=== PATIENT | female | born 1985 | race American Indian/Alaskan Native ===

== ENCOUNTER 2020-06-04 11:24 | Emergency (ER) | payer BC, MEDICAID ==
[2020-06-04 11:59] VITALS: BP 120/85
--- NOTE | 2020-06-04 12:38 | Event Note ---
ED Screening Note Date of service: 06/04/20 Time: 12:34 ED Screening Note: 8-week patient presents with complaints of nausea vomiting for the duration of her She is currently following with Dr. Julio Cesar Cedeno [employer] Shani states that she was unable to afford the nausea medication that was prescribed Diclegis, and she was told to try Unisom and B6-states cannot take because makes her drowsy She also does states some mild lower abdominal cramping and intermittent vaginal bleeding, however she did have an ultrasound to assess this on 05/31/2020 and no abnormalities were found She denies any new or worsening pain or bleeding This initial assessment/diagnostic orders/clinical plan/treatment(s) is/are subject to change based on patients health status, clinical progression and re- assessment by fellow clinical providers in the ED. Further treatment and workup at subsequent clinical providers discretion. Patient/guardian urged not to elope from the ED as their condition may be serious if not clinically assessed and managed. Initial orders include: labs
[2020-06-04 13:56] LABS: Basophils % (Auto) 0.7 % (0.0-1.8); Eosinophils # (Auto) 0.1 K/mm3 (0.0-0.4); Eosinophils % (Auto) 1.5 % (0.0-4.3); Hematocrit 39.6 % (30.3-42.9); Hemoglobin 13.3 gm/dl (10.1-14.3); Lymphocytes # (Auto) 1.5 K/mm3 (1.2-5.4); Mean Corpuscular HGB Conc 34 % (30-34); Mean Corpuscular Volume 83 fl (79-97); Monocytes # (Auto) 0.5 K/mm3 (0.0-0.8); Monocytes % (Auto) 10.9 % (0.0-7.3); Platelet Count 373 K/mm3 (140-440); Red Blood Count 4.79 M/mm3 (3.65-5.03); Red Cell Distribution Width 12.8 % (13.2-15.2)
[2020-06-04 14:32] LABS: Alanine Aminotransferase 18 units/L (7-56); Albumin 4.4 g/dL (3.9-5); BUN/Creatinine Ratio 12; Blood Urea Nitrogen 6 mg/dL (7-17); Calcium 9.6 mg/dL (8.4-10.2); Hemolysis Index 19
[2020-06-04 15:47] LABS: Bilirubin,Urine NEG (Negative); Blood,Urine NEG (Negative); Color,Urine Amber (Yellow); Mucus,Urine 1+ /HPF
[2020-06-04] MEDS ORDERED: SUMAtriptan SUCCINATE 25 MG TAB PO ONE (17:52)
[2020-06-04] MEDS ORDERED: METOCLOPRAMIDE 10 MG TAB PO ONE (17:52)
[2020-06-04] MEDS ORDERED: ACETAMINOPHEN 325 MG TAB PO ONE (17:54)
[2020-06-04] MEDS ORDERED: SODIUM CHLORIDE 0.9% 1000 ML 1,000 ML IV ONE (17:54)
[2020-06-04] MEDS ORDERED: METOCLOPRAMIDE 10 MG/2 ML INJ IV ONE (17:54)
--- NOTE | 2020-06-04 18:32 | Emergency Department Report ---
ED General Adult HPI - General Chief complaint: Weakness Stated complaint: 8WKS PREG, DEHYDARTION Time Seen by Provider: 06/04/20 12:32 Source: patient Mode of arrival: Ambulatory Limitations: No Limitations - History of Present Illness Initial comments: Patient is a 34-year-old female presents emergency room with complaints of nausea and vomiting that has been ongoing for the last 2 months but worsened today. She states that she was unable to tolerate p.o. intake today. She states that she is also had constipation over the last couple days but has not taken anything for it. Patient states that she is currently 8 weeks . She states that she goes to [facility] and was seen there on Saturday (05/31/2020) and states she had a normal ultrasound at that time. Patient states she was given a prescription for diclegis but her insurance does not cover it and she was unable to get it due to monetary reasons. Patient states that she had vom iting throughout her last and states that Reglan did work for her. She states that she is not able to take the Unisom and B6 because she has to work during the day and it makes her sleepy. She denies any fever, dysuria, abdominal pain, vaginal bleeding. She denies any past medical history. She denies allergies medications. She states her last menstrual cycle was May 05. /P:2/A:0 Severity scale (0 -10): 6 - Related Data Previous Rx's Medication Instructions Recorded Last Taken Type Metoclopramide [Reglan] 10 mg PO TID #20 tab 06/04/20 Unknown Rx cephALEXin [Keflex] 500 mg PO BID 7 Days #14 cap 06/04/20 Unknown Rx Allergies Allergy/AdvReac Type Severity Reaction Status Date / Time No Known Allergies Allergy Unverified 06/04/20 12:30 ED Review of Systems ROS: Stated complaint: 8WKS PREG, DEHYDARTION Other details as noted in HPI Comment: All other systems reviewed and negative ED Past Medical Hx - Past Medical History Previous Medical History?: Yes Additional medical history: Vaginal delivery x 2 - Surgical History Past Surgical History?: Yes Additional Surgical History: T&A - Social History Smoking Status: Never Smoker Substance Use Type: None - Medications Home Medications: Home Medications Medication Instructions Recorded Confirmed Last Taken Type Metoclopramide [Reglan] 10 mg PO TID #20 tab 06/04/20 Unknown Rx cephALEXin [Keflex] 500 mg PO BID 7 Days #14 cap 06/04/20 Unknown Rx ED Physical Exam - General Limitations: No Limitations General appearance: alert, in no apparent distress - Head Head exam: Present: atraumatic, normocephalic - Eye Eye exam: Present: normal appearance - ENT ENT exam: Present: mucous membranes dry (mildly) - Respiratory Respiratory exam: Present: normal lung sounds bilaterally. Absent: respiratory distress, wheezes, rales, rhonchi, stridor, chest wall tenderness, accessory muscle use, decreased breath sounds, prolonged expiratory - Cardiovascular Cardiovascular Exam: Present: regular rate, normal rhythm, normal heart sounds. Absent: systolic murmur, diastolic murmur, rubs, gallop - GI/Abdominal GI/Abdominal exam: Present: soft, normal bowel sounds. Absent: distended, tenderness, guarding, rebound, rigid - Neurological Exam Neurological exam: Present: alert, oriented X3 - Psychiatric Psychiatric exam: Present: normal affect, normal mood - Skin Skin exam: Present: warm, dry, intact ED Course Vital Signs 06/04/20 06/04/20 11:57 12:36 Temperature 98.7 F 98.7 F Pulse Rate 69 69 Respiratory 18 18 Rate Blood Pressure 120/85 [Right] O2 Sat by Pulse 100 100 Oximetry ED Medical Decision Making - Lab Data Result diagrams: 06/04/20 13:40 06/04/20 13:40 Lab Results 06/04/20 06/04/20 06/04/20 Range/Units 13:40 13:40 16:03 WBC 4.5 (4.5-11.0) K/mm3 RBC 4.79 (3.65-5.03) M/mm3 Hgb 13.3 (10.1-14.3) gm/dl Hct 39.6 (30.3-42.9) % MCV 83 (79-97) fl MCH 28 (28-32) pg MCHC 34 (30-34) % RDW 12.8 L (13.2-15.2) % Plt Count 373 (140-440) K/mm3 Lymph % (Auto) 33.0 (13.4-35.0) % [place] % (Auto) 10.9 H (0.0-7.3) % Eos % (Auto) 1.5 (0.0-4.3) % Baso % (Auto) 0.7 (0.0-1.8) % Lymph # 1.5 (1.2-5.4) K/mm3 [place] # 0.5 (0.0-0.8) K/mm3 Eos # 0.1 (0.0-0.4) K/mm3 Baso # 0.0 (0.0-0.1) K/mm3 Seg Neutrophils % 53.9 (40.0-70.0) % Seg Neutrophils # 2.4 (1.8-7.7) K/mm3 Sodium 137 (137-145) mmol/L Potassium 3.8 (3.6-5.0) mmol/L Chloride 99.7 (98-107) mmol/L Carbon Dioxide 23 (22-30) mmol/L Anion Gap 18 mmol/L BUN 6 L (7-17) mg/dL Creatinine 0.5 L (0.7-1.2) mg/dL Estimated GFR > 60 ml/min BUN/Creatinine Ratio 12 % Glucose 90 (65-100) mg/dL Calcium 9.6 (8.4-10.2) mg/dL Total Bilirubin 0.60 (0.1-1.2) mg/dL AST 22 (5-40) units/L ALT 18 (7-56) units/L Alkaline Phosphatase 50 (35-129) units/L Total Protein 6.9 (6.3-8.2) g/dL Albumin 4.4 (3.9-5) g/dL Albumin/Globulin Ratio 1.8 % HCG, Quant 80482 H (0-4) mIU/mL Urine Color (Yellow) Urine Turbidity (Clear) Urine pH (5.0-7.0) Ur Specific [place] (1.003-1.030) Urine Protein (Negative) mg/dL Urine Glucose (UA) (Negative) mg/dL Urine Ketones (Negative) mg/dL Urine Blood (Negative) Urine Nitrite (Negative) Urine Bilirubin (Negative) Urine Urobilinogen (<2.0) mg/dL Ur Leukocyte Esterase (Negative) Urine WBC (Auto) (0.0-6.0) /HPF Urine RBC (Auto) (0.0-6.0) /HPF U Epithel Cells (Auto) (0-13.0) /HPF Urine Mucus /HPF 07/18/20 Range/Units Unknown WBC (4.5-11.0) K/mm3 RBC (3.65-5.03) M/mm3 Hgb (10.1-14.3) gm/dl Hct (30.3-42.9) % MCV (79-97) fl MCH (28-32) pg MCHC (30-34) % RDW (13.2-15.2) % Plt Count (140-440) K/mm3 Lymph % (Auto) (13.4-35.0) % [place] % (Auto) (0.0-7.3) % Eos % (Auto) (0.0-4.3) % Baso % (Auto) (0.0-1.8) % Lymph # (1.2-5.4) K/mm3 [place] # (0.0-0.8) K/mm3 Eos # (0.0-0.4) K/mm3 Baso # (0.0-0.1) K/mm3 Seg Neutrophils % (40.0-70.0) % Seg Neutrophils # (1.8-7.7) K/mm3 Sodium (137-145) mmol/L Potassium (3.6-5.0) mmol/L Chloride (98-107) mmol/L Carbon Dioxide (22-30) mmol/L Anion Gap mmol/L BUN (7-17) mg/dL Creatinine (0.7-1.2) mg/dL Estimated GFR ml/min BUN/Creatinine Ratio % Glucose (65-100) mg/dL Calcium (8.4-10.2) mg/dL Total Bilirubin (0.1-1.2) mg/dL AST (5-40) units/L ALT (7-56) units/L Alkaline Phosphatase (35-129) units/L Total Protein (6.3-8.2) g/dL Albumin (3.9-5) g/dL Albumin/Globulin Ratio % HCG, Quant (0-4) mIU/mL Urine Color Charline (Yellow) Urine Turbidity Cloudy (Clear) Urine pH 8.0 H (5.0-7.0) Ur Specific [place] 1.023 (1.003-1.030) Urine Protein 30 mg/dl (Negative) mg/dL Urine Glucose (UA) Neg (Negative) mg/dL Urine Ketones 80 (Negative) mg/dL Urine Blood Neg (Negative) Urine Nitrite Neg (Negative) Urine Bilirubin Neg (Negative) Urine Urobilinogen 4.0 (<2.0) mg/dL Ur Leukocyte Esterase Tr (Negative) Urine WBC (Auto) 9.0 H (0.0-6.0) /HPF Urine RBC (Auto) 6.0 (0.0-6.0) /HPF U Epithel Cells (Auto) 6.0 (0-13.0) /HPF Urine Mucus 1+ /HPF - Medical Decision Making Patient is a 34-year-old female presents emergency room with complaints of nausea and vomiting that has been ongoing for the last 2 months but worsened today. She states that she was unable to tolerate p.o. intake today. She states that she is also had constipation over the last couple days but has not taken anything for it. Patient states that she is currently 8 weeks . She states that she goes to [facility] and was seen there on Saturday (05/31/2020) and states she had a normal ultrasound at that time. Patient states she was given a prescription for diclegis but her insurance does not cover it and she was unable to get it due to monetary reasons. Patient states that she had vomiting throughout her last and states that Reglan did work for her. She states that she is not able to take the Unisom and B6 because she has to work during the day and it makes her sleepy. She denies any fever, dysuria, abdominal pain, vaginal bleeding. She denies any past medical history. She denies allergies medications. She states her last menstrual cycle was May 05. /P:2/A:0. Vitals are normal. On exam mildly dry mucous membranes, no abdominal tenderness to palpation, no guarding, no rebound, no rigidity, normal bowel sounds, no peritoneal signs. [place] [id number]. UA shows evidence of mild UTI with white blood cells and trace leukocyte esterase. UA shows evidence of dehydration with ketones and elevated pH. Patient given 1 L IV fluids and Reglan and Tylenol and symptoms improved and patient was feeling much better and ready to go home. Patient was able to tolerate p.o. intake without difficulty and had no further episodes of vomiting while in the emergency department. Patient given prescription for Reglan and Keflex. Advised patient to please take medication as prescribed. Increase your water intake over the next several days. Please take antibiotics with food. Follow- up with your [employer]. Return to emergency room immediately for any new or worsening symptoms. - Differential Diagnosis Hyperemesis, UTI, dehydration, electrolyte abnormality Critical care attestation.: If time is entered above; I have spent that time in minutes in the direct care of this critically ill patient, excluding procedure time. ED Disposition Clinical Impression: Nausea/vomiting in UTI (urinary tract infection) Qualifiers: Urinary tract infection type: acute cystitis Hematuria presence: without hematuria Qualified Code(s): N30.00 - Acute cystitis without hematuria Disposition: TO HOME OR SELFCARE Is pt being admited?: No Does the pt Need Aspirin: No Condition: Stable Instructions: Urinary Tract Infection in Women (ED), Hyperemesis Gravidarum (ED) Additional Instructions: please take medication as prescribed. Increase your water intake over the next several days. Please take antibiotics with food. Follow-up with your [employer]. Return to emergency room immediately for any new or worsening symptoms. Prescriptions: cephALEXin [Keflex] 500 mg PO BID 7 Days #14 cap Metoclopramide [Reglan] 10 mg PO TID #20 tab Referrals: CL BERNARDO [Other] - 2-3 Days Print Language: SAMI
== END 2020-06-04 21:05 | disposition home or self-care (01) ==
LOC: ED 11:24
DX: O23.41 Unspecified infection of urinary tract in pregnancy, first trimester (principal); Z3A.01 Less than 8 weeks gestation of pregnancy
CPT/HCPCS: 36415; 80053; 81001; 84702; 85025; 87086; 96361; 96374; 99283; J2765; J7030